=== PATIENT | female | born 1960 | race Caucasian/White ===

== ENCOUNTER 2019-05-30 11:00 | Outpatient (RCR) | payer BC | END 2019-06-03 | LOC: PT 11:00 | PROVIDERS: ATTEND Orthopaedic Surgery Foot and Ankle Surgery | DX: S93.402D Sprain of unspecified ligament of left ankle, subsequent encounter (principal); M62.81 Muscle weakness (generalized); M25.572 Pain in left ankle and joints of left foot; M25.672 Stiffness of left ankle, not elsewhere classified; R26.2 Difficulty in walking, not elsewhere classified ==

== ENCOUNTER 2019-06-20 13:00 | Outpatient (RCR) | payer BC | END 2019-07-03 | LOC: PT 13:00 | PROVIDERS: ATTEND Orthopaedic Surgery Foot and Ankle Surgery | DX: S93.401D Sprain of unspecified ligament of right ankle, subsequent encounter (principal); M25.572 Pain in left ankle and joints of left foot; M25.672 Stiffness of left ankle, not elsewhere classified; R26.2 Difficulty in walking, not elsewhere classified; M62.81 Muscle weakness (generalized) | CPT/HCPCS: 97139 ==

== ENCOUNTER 2019-07-04 11:20 | Outpatient (RCR) | payer BC | END 2019-08-03 | LOC: PT 11:20 | PROVIDERS: ATTEND Orthopaedic Surgery Foot and Ankle Surgery | DX: S93.402A Sprain of unspecified ligament of left ankle, initial encounter (principal); M25.572 Pain in left ankle and joints of left foot; M62.81 Muscle weakness (generalized); R26.2 Difficulty in walking, not elsewhere classified; M25.672 Stiffness of left ankle, not elsewhere classified | CPT/HCPCS: 97139 ==

== ENCOUNTER 2019-11-28 10:00 | Outpatient (RCR) | payer BC | END 2019-12-02 | LOC: PT 10:00 | PROVIDERS: ATTEND Orthopaedic Surgery Foot and Ankle Surgery | DX: S93.492D Sprain of other ligament of left ankle, subsequent encounter (principal); S93.412D Sprain of calcaneofibular ligament of left ankle, subsequent encounter; M25.372 Other instability, left ankle; M25.572 Pain in left ankle and joints of left foot; M25.672 Stiffness of left ankle, not elsewhere classified; M62.81 Muscle weakness (generalized) ==

== ENCOUNTER 2019-12-05 10:06 | Outpatient (RCR) | payer BC | END 2020-01-02 | LOC: PT 10:06 | PROVIDERS: ATTEND Orthopaedic Surgery Foot and Ankle Surgery | DX: S93.492D Sprain of other ligament of left ankle, subsequent encounter (principal); S93.412D Sprain of calcaneofibular ligament of left ankle, subsequent encounter; M25.372 Other instability, left ankle ==

== ENCOUNTER 2022-02-19 06:50 | Observation (INO) | payer BC ==
[2022-02-18 11:05] LABS: BASOPHILS # (AUTO) 0.1 (0.0-0.1); BASOPHILS % 1.1 % (0.0-1.0); EOSINOPHILS # (AUTO) 0.5 (0.0-0.4); EOSINOPHILS % 9.1 % (0.0-6.0); HEMATOCRIT 39.9 % (34.2-44.1); HEMOGLOBIN 12.8 g/dL (12.0-16.0); LYMPHOCYTES # (AUTO) 1.3 (1.0-3.2); LYMPHOCYTES % 24.5 % (18.0-39.1); MEAN CORPUSCULAR HEMOGLOBIN 30.5 pg (28-32); MEAN CORPUSCULAR HGB CONC 32.1 g/dL (31-35); MEAN CORPUSCULAR VOLUME 95.2 fL (81-99); MONOCYTES # (AUTO) 0.6 (0.2-0.8); MONOCYTES % 10.8 % (4.4-11.3); NEUTROPHILS # (AUTO) 2.9 (2.1-6.9); NEUTROPHILS % 53.9 % (38.7-80.0); PLATELET COUNT 179 x10e3/uL (140-360); RED BLOOD COUNT 4.19 x10e6/uL (3.6-5.1); RED CELL DISTRIBUTION WIDTH 13.9 % (11.7-14.4)
[2022-02-18 11:15] LABS: INR 0.92; PROTHROMBIN TIME 13.2 seconds (11.9-14.5)
[2022-02-18 11:16] LABS: PARTIAL THROMBOPLASTIN TIME 27.3 seconds (23.8-35.5)
[2022-02-18 11:20] LABS: ANION GAP 10.2 mmol/L (8-16); CALCIUM 9.1 mg/dL (8.4-10.2); CREATININE, SERUM 0.91 mg/dL (0.57-1.11); POTASSIUM 4.2 mmol/L (3.5-5.1)
[~2022-02-19] VITALS: Ht 165.1 cm; Wt 83.9 kg
[~2022-02-19 06:50] MED LIST: CLOPIDOGREL75 MG PO; CYCLOBENZAPRINE5 MG PO; HYDROCODON-ACE1 EAC9 PO; LIDOCAINE 1% W/EPINEPHRINE 20 ML VIAL ONE; RAMIPRIL5 MG PO; THROMBIN FOR SOLN 5,000 UNIT VIAL ONE; Vancomycin IV 1 GM VIAL ONE
[2022-02-19] MEDS ORDERED: HYDROCODON-ACE1 EA12 PO (09:21)
[2022-02-19] MEDS ORDERED: MORPHINE SULFATE 5 MG/ML VIAL IM PRN (09:30)
[2022-02-19] MEDS ORDERED: PROMETHAZINE HCL (IM) 25 MG/ML VIAL IM PRN (09:30)
[2022-02-19] MEDS ORDERED: ONDANSETRON HCL INJ 2MG/ML 2ML 2 MG/ML VIAL IV PRN (09:30)
[2022-02-19] MEDS ORDERED: ACETAMINOPHEN 325 MG TAB PO PRN (09:30)
[2022-02-19] MEDS ORDERED: MAGNESIUM/ALUMINUM/SIMETHICONE 30 ML UDC PO PRN (09:30)
[2022-02-19] MEDS ORDERED: ZOLPIDEM TARTRATE 5 MG TAB PO PRN (09:30)
[2022-02-19] MEDS ORDERED: FENTANYL CITRATE/PF 100MCG/2 ML INJ ONE ×2 (09:40→12:35)
[2022-02-19] MEDS ORDERED: Morphine 10mg syringe 10 MG/ML INJ ONE (11:34)
[2022-02-19] MEDS ORDERED: POVIDONE IODINE 0.05% 0.05 % ML PO ONE (11:50)
[2022-02-19] MEDS ORDERED: LIDOCAINE HCL 2% LOCAL INJ 5 ML SDV VIAL INJ ONE (11:50)
[2022-02-19] MEDS ORDERED: PROPOFOL IV EMULSION 10 MG/ML 20 ML VIAL ONE (11:50)
[2022-02-19] MEDS ORDERED: SEVOFLURANE INHAL SOLN 250 ML PEN BTL ONE (11:50)
[2022-02-19] MEDS ORDERED: DEXAMETHASONE SOD PHOS INJ 4 MG/ML SDV ONE (11:50)
[2022-02-19] MEDS ORDERED: ACETAMINOPHEN 1000 MG/100 ML IV ONE (11:50)
[2022-02-19] MEDS ORDERED: ROCURONIUM BROMIDE 10 MG/ML 5ML VIAL IV ONE (11:50)
[2022-02-19] MEDS ORDERED: IBUPROFEN 800 MG/200 ML BAG IV ONE (11:50)
[2022-02-19] MEDS ORDERED: GLYCOPYRROLATE INJ 0.2 MG/ML VIAL ONE (11:50)
[2022-02-19] MEDS ORDERED: ONDANSETRON HCL INJ 2MG/ML 2ML 2 MG/ML VIAL ONE (11:50)
[2022-02-19] MEDS ORDERED: LIDOCAINE HCL (LTA) 4 ML SOLN ONE (11:50)
[2022-02-19] MEDS ORDERED: NEOSTIGMINE 1 MG/ML 10ML VIAL ONE (11:50)
[2022-02-19] MEDS ORDERED: SUGAMMADEX SODIUM 200 MG/2 ML VIAL IV ONE (11:50)
[2022-02-19] MEDS ORDERED: SUCCINYLCHOLINE CHLORIDE 20 MG/ML 10ML VIAL ONE (11:50)
[2022-02-19 12:17] VITALS: BP 171/93
[2022-02-19] MEDS ORDERED: MIDAZOLAM HCL 2 MG/2 ML VIAL ONE (12:35)
[2022-02-19 12:56] VITALS: BP 171/93
[2022-02-19 13:00] VITALS: BP 171/93
[2022-02-19] MEDS: CARISOPRODOL 350 MG TAB PO PRN ×3 (13:49→22:30)
[2022-02-19] MEDS: CEPACOL SORE THROAT LOZENGES PO PRN (13:49)
[2022-02-19] MEDS: OXYCODONE/ACETAMINOPHEN 5-325 1 EACH TABLET PO PRN ×3 (13:49→22:29)
[2022-02-19 15:35] VITALS: BP 152/98
[2022-02-19 20:00] VITALS: BP 145/94
[2022-02-19] MEDS: LACTATED RINGER'S 1,000 ML IV SCH ×2 (20:09→20:29)
[2022-02-19] MEDS: HYDROMORPHONE 2MG/ML 2 MG/ML ML IV PRN (20:21)
[2022-02-19 21:00] VITALS: BP 145/94
[2022-02-20 00:18] VITALS: BP 124/88
[2022-02-20] MEDS: HYDROMORPHONE 2MG/ML 2 MG/ML ML IV PRN (00:25)
[2022-02-20] MEDS: LACTATED RINGER'S 1,000 ML IV SCH (02:10)
[2022-02-20 04:00] VITALS: BP 111/84
[2022-02-20] MEDS: OXYCODONE/ACETAMINOPHEN 5-325 1 EACH TABLET PO PRN ×2 (05:08→09:06)
[2022-02-20] MEDS: CARISOPRODOL 350 MG TAB PO PRN ×2 (05:08→09:07)
[2022-02-20] MEDS: CEPACOL SORE THROAT LOZENGES PO PRN (05:19)
[2022-02-20 08:02] VITALS: BP 118/80
[2022-02-20] MEDS ORDERED: RAMIPRIL 5 MG CAP PO SCH (09:00)
[2022-02-20 09:10] VITALS: BP 118/80
== END 2022-02-20 10:15 | disposition home or self-care (01) ==
LOC: OR 06:50 → PACU V 10:08 → MED/SURG 11:42
PROVIDERS: ADMIT Neurological Surgery; ATTEND Neurological Surgery
DX: S12.500A Unspecified displaced fracture of sixth cervical vertebra, initial encounter for closed fracture (principal); I10 Essential (primary) hypertension; E78.5 Hyperlipidemia, unspecified; K57.90 Diverticulosis of intestine, part unspecified, without perforation or abscess without bleeding; Z86.73 Personal history of transient ischemic attack (TIA), and cerebral infarction without residual deficits; M43.22 Fusion of spine, cervical region; M96.69 Fracture of other bone following insertion of orthopedic implant, joint prosthesis, or bone plate; Z98.1 Arthrodesis status; Z97.8 Presence of other specified devices; Z87.891 Personal history of nicotine dependence
CPT/HCPCS: 36415; 71046; 72040; 76000; 80048; 85025; 85610; 85730; 86850; 86900; 93005; 99251; C1713; G0378; J0330; J0690; J1100; J2001; J2250; J2270; J2405; J2710; J3010; J3370; J7121

== ENCOUNTER → 2022-11-03 | Outpatient (RCR) | payer BC ==
[~2022-11-03] MED LIST changes: +HYDROCODON-ACE1 EA12 PO; -LIDOCAINE 1% W/EPINEPHRINE 20 ML VIAL ONE; -THROMBIN FOR SOLN 5,000 UNIT VIAL ONE; -Vancomycin IV 1 GM VIAL ONE
== END ==
LOC: PT 10:56
PROVIDERS: ATTEND Neurological Surgery
DX: M50.11 Cervical disc disorder with radiculopathy, high cervical region (principal)

== ENCOUNTER → 2022-12-01 | Outpatient (RCR) | payer BC | LOC: PT 11-06 08:58 | PROVIDERS: ATTEND Neurological Surgery | DX: M50.11 Cervical disc disorder with radiculopathy, high cervical region (principal) ==

== ENCOUNTER 2022-12-04 07:39 | Outpatient (RCR) | payer BC | END 2023-01-01 | LOC: PT 07:39 | PROVIDERS: ATTEND Neurological Surgery | DX: M50.11 Cervical disc disorder with radiculopathy, high cervical region (principal) ==

== ENCOUNTER 2023-07-30 11:00 | Outpatient (RCR) | payer BC | END 2023-08-03 | LOC: PT 11:00 | PROVIDERS: ATTEND Orthopaedic Surgery | DX: M75.121 Complete rotator cuff tear or rupture of right shoulder, not specified as traumatic (principal); S43.431A Superior glenoid labrum lesion of right shoulder, initial encounter ==

== ENCOUNTER 2023-08-17 10:59 | Outpatient (RCR) | payer BC | END 2023-09-02 | LOC: PT 10:59 | PROVIDERS: ATTEND Orthopaedic Surgery | DX: M75.121 Complete rotator cuff tear or rupture of right shoulder, not specified as traumatic (principal); S43.431A Superior glenoid labrum lesion of right shoulder, initial encounter ==

== ENCOUNTER 2024-04-25 11:00 | Outpatient (RCR) | payer BC | END 2024-05-03 | LOC: PT 11:00 | PROVIDERS: ATTEND Orthopaedic Surgery | DX: M54.12 Radiculopathy, cervical region (principal); M62.81 Muscle weakness (generalized); M25.512 Pain in left shoulder ==

== ENCOUNTER 2024-05-04 09:36 | Outpatient (RCR) | payer BC | END 2024-06-03 | LOC: PT 09:36 | PROVIDERS: ATTEND Orthopaedic Surgery | DX: M54.12 Radiculopathy, cervical region (principal); M25.512 Pain in left shoulder; M62.81 Muscle weakness (generalized) ==

== ENCOUNTER 2024-06-06 15:15 | Outpatient (RCR) | payer BC | END 2024-07-03 | LOC: PT 15:15 | PROVIDERS: ATTEND Orthopaedic Surgery | DX: M54.12 Radiculopathy, cervical region (principal); M25.512 Pain in left shoulder ==